=== PATIENT | male | born 1950 | race Native Hawaiian/Other Pacific Islander ===

== ENCOUNTER 2016-09-15 07:08 | Day surgery (SDC) | payer OTHER ==
[2016-09-15] MEDS ORDERED: fentaNYL 100 MCG/2 ML INJ IVP ONE (07:16)
[2016-09-15] MEDS ORDERED: NS 500 ML IV ONE (07:16)
[2016-09-15] MEDS ORDERED: PROPOFOL 200 MG/20 ML VIAL IVP ONE (07:16)
[2016-09-15] MEDS ORDERED: MIDAZOLAM 2 MG/2 ML VIAL IVP ONE (07:16)
--- NOTE | 2016-09-15 07:42 | CPEKG ---
Heart Rate: 59 RR Interval: 1017 QRSD Interval: 80 QT Interval: 428 QTC Interval: 424 QRS [place]: 12 T Wave [place]: 13 EKG Severity - ABNORMAL ECG - EKG Impression: ATRIAL FIBRILLATION, V-RATE 44-69 Electronically Signed By: Vidal Jackson 15-Sep-2016 08:57:21
[2016-09-15 08:12] LABS: INR 1.37 (0.83-1.16); PROTIME(PATIENT) 16.9 SEC (12.0-15.0)
[2016-09-15 08:20] LABS: ANION GAP 14 mEq/L (8-16); CALCIUM 9.7 mg/dL (8.5-10.4); CARBON DIOXIDE 24 mEq/l (22-31); CHLORIDE 104 mEq/L (97-110); CREATININE 0.9 mg/dL (0.7-1.3); GLOMERULAR FILTRATION RATE > 60; GLUCOSE 178 mg/dL (70-100); MAGNESIUM 2.4 mg/dL (1.6-2.3); POTASSIUM 4.9 mEq/L (3.5-5.2); SODIUM 142 mEq/L (134-144)
[2016-09-15] MEDS ORDERED: LIDOCAINE 2% 5 ML SDV ONE (08:44)
[2016-09-15] MEDS ORDERED: ATROPINE SULFATE 1 MG/10 ML SYR ONE (09:23)
--- NOTE | 2016-09-15 09:34 | CPEKG ---
Heart Rate: 66 RR Interval: 909 P-R Interval: 232 QRSD Interval: 82 QT Interval: 400 QTC Interval: 420 P [place]: -6 QRS [place]: 17 T Wave [place]: 13 EKG Severity - ABNORMAL ECG - EKG Impression: SINUS RHYTHM EKG Impression: FIRST DEGREE AV BLOCK Electronically Signed By: Vidal Jackson 15-Sep-2016 09:47:38
[2016-09-15] MEDS ORDERED: LIDOCAINE/PRILOCAINE 1 EACH CRTUBE TP ONE (10:03)
--- NOTE | 2016-09-21 07:56 | EPPROC ---
Electrophysiology Procedure Note: Procedure: CV Indication: Symptomatic AF Procedure: Pt sedated with help of anesthesia staff. Once sedated, 200J of DCCV performed. Pt converted to SR Conclusion: Successful CV.
== END 2016-09-15 11:01 | disposition home or self-care (01) ==
LOC: FCATH 07:08
PROVIDERS: ATTEND Internal Medicine Cardiovascular Disease
PROC: 5A2204Z Restoration of Cardiac Rhythm, Single (ICD-10-PCS; principal; 2016-09-15)
DX: I48.91 Unspecified atrial fibrillation (principal); I10 Essential (primary) hypertension
CPT/HCPCS: J0461; J2704

== ENCOUNTER 2016-10-20 09:15 | Day surgery (SDC) | payer OTHER ==
[2016-10-20] MEDS ORDERED: PROPOFOL 200 MG/20 ML VIAL IVP ONE (09:17)
[2016-10-20] MEDS ORDERED: fentaNYL 100 MCG/2 ML INJ IVP ONE (09:17)
[2016-10-20] MEDS ORDERED: MIDAZOLAM 2 MG/2 ML VIAL IVP ONE (09:17)
[2016-10-20] MEDS ORDERED: NS 500 ML IV ONE (09:17)
--- NOTE | 2016-10-20 09:29 | CPEKG ---
Heart Rate: 45 RR Interval: 1333 QRSD Interval: 92 QT Interval: 496 QTC Interval: 430 QRS [place]: 1 T Wave [place]: 19 EKG Severity - ABNORMAL ECG - EKG Impression: ATRIAL FLUTTER, A-RATE 306 -- New since September 15, 2016 EKG Impression: PROBABLE INFERIOR INFARCT, AGE INDETERMINATE Electronically Signed By: Jasper Isbell 20-Oct-2016 16:10:24
[2016-10-20] MEDS ORDERED: ATROPINE SULFATE 1 MG/10 ML SYR ONE (09:48)
[2016-10-20 09:56] LABS: INR 1.25 (0.83-1.16); PROTIME(PATIENT) 15.7 SEC (12.0-15.0)
[2016-10-20 09:57] LABS: APTT 37.9 SEC (23.0-38.0)
--- NOTE | 2016-10-20 10:05 | CPEKG ---
Heart Rate: 66 RR Interval: 909 P-R Interval: 216 QRSD Interval: 82 QT Interval: 400 QTC Interval: 420 P [place]: -1 QRS [place]: 15 T Wave [place]: 22 EKG Severity - NORMAL ECG - EKG Impression: SINUS RHYTHM EKG Impression: Resolution of atrial flutter since October 20, 2016, 9:28 Electronically Signed By: Jasper Isbell 20-Oct-2016 16:09:43
[2016-10-20 10:10] LABS: ANION GAP 13 mEq/L (8-16); CALCIUM 10.2 mg/dL (8.5-10.4); CARBON DIOXIDE 22 mEq/l (22-31); CHLORIDE 108 mEq/L (97-110); CREATININE 0.9 mg/dL (0.7-1.3); GLOMERULAR FILTRATION RATE > 60; GLUCOSE 142 mg/dL (70-100); POTASSIUM 4.5 mEq/L (3.5-5.2); SODIUM 143 mEq/L (134-144)
[2016-10-20] MEDS ORDERED: LIDOCAINE/PRILOCAINE 1 EACH CRTUBE TP ONE ×2 (10:42→11:00)
[2016-10-20] MEDS ORDERED: LIDOCAINE 4% 15 GM CREAM TP ONE (11:00)
--- NOTE | 2016-10-20 11:37 | EPPROC ---
Electrophysiology Procedure Note: Procedure: CV Indication: AF Procedure: Pt sedated by anesthesia staff. Once sedated, 200J of synchronized DCCV used. ptconverted to SR. Conclusion: Successful CV
== END 2016-10-20 15:12 | disposition home or self-care (01) ==
LOC: FCATH 09:15
PROVIDERS: ATTEND Internal Medicine Cardiovascular Disease
PROC: 5A2204Z Restoration of Cardiac Rhythm, Single (ICD-10-PCS; principal; 2016-10-20)
DX: I48.0 Paroxysmal atrial fibrillation (principal); I48.92 Unspecified atrial flutter; I10 Essential (primary) hypertension; E11.9 Type 2 diabetes mellitus without complications; E66.9 Obesity, unspecified; Z79.01 Long term (current) use of anticoagulants; Z68.36 Body mass index [BMI] 36.0-36.9, adult
CPT/HCPCS: J0461; J2704

== ENCOUNTER → 2017-05-26 | Outpatient (CLI) | payer OTHER | LOC: FIMAGING 12:51 | PROVIDERS: ATTEND Family Medicine | DX: Z12.31 Encounter for screening mammogram for malignant neoplasm of breast (principal) ==